=== PATIENT | female | born 2005 | race Two or more races ===

== ENCOUNTER 2025-02-25 21:48 | Emergency (ER) | payer OTHER, SELFPAY ==
[2025-02-25 21:50] VITALS: BP 121/78; PULSE 124; RESP 18; TEMP 36.9; O2SAT 99; BMI 28.8
--- NOTE | 2025-02-25 22:01 | PC.NURSE ---
Patient presents from home with generalized blotchy hives started on Wednesday while at work and has progressively gotten worse with assoc itching and joint pain. Has taken benadryl with minimal effect.
[2025-02-25 22:04] VITALS: BP 119/77; PULSE 117; RESP 16; O2SAT 100
[2025-02-25 22:25] LABS: MANUAL DIFF FLAG NO
[2025-02-25 22:26] LABS: Basophils Percent Auto 0.1 % (0-2); Eosinophils Absolute Auto 0.1 X10*3/uL (0.0-0.4); Hematocrit 42.3 % (37.0-47.0); Imm Gran Abs Auto 0.02 X10*3/uL (0.00-0.03); Imm Gran Pct Auto 0.2 % (0.0-0.4); Lymphocytes Absolute Auto 1.4 X10*3/uL (1.2-4.9); Lymphocytes Percent Auto 13.7 % (20-40); Mean Corpuscular HGB Conc 33.1 g/dl (31.0-35.0); Mean Corpuscular Hemoglobin 26.7 pg (27.0-33.0); Mean Corpuscular Volume 80.7 fL (80.0-98.0); Mean Platelet Volume 8.9 fL (9.4-12.3); Monocytes Absolute Auto 0.4 X10*3/uL (0.1-1.2); Monocytes Percent Auto 3.7 % (2-11); Neutrophils Absolute Auto 8.2 x10*3/uL (2.0-8.3); Neutrophils Percent Auto 81.3 % (45-73); Platelet Count 253 X10*3/uL (160-400); Red Blood Count 5.24 X10*6/uL (4.20-5.50); Red Cell Distribution Width 14.1 % (11.0-16.0)
[2025-02-25 22:40] LABS: Alanine Aminotransferase 7 U/L (0-31); Albumin Level 3.4 g/dL (3.5-5.0); Alkaline Phosphatase 81 U/L (39-117); Anion Gap 10 (12-20); Aspartate Amino Transferase 16 U/L (5-31); Bilirubin Total 0.4 mg/dL (0.0-1.0); Blood Urea Nitrogen 7 mg/dL (9-16); Calcium 8.3 mg/dL (8.4-10.2); Carbon Dioxide 23 mmol/L (22-29); Chloride 107 mmol/L (96-108); Creatinine Clr Calc Pharmacy 117.6; Estimated Glomerular Filt Rate > 60; Glucose Random 96 mg/dL (60-115); Potassium 3.7 mmol/L (3.3-5.1); Sodium 136 mmol/L (135-145); Total Protein 6.4 g/dL (6.5-8.0)
[2025-02-26 00:20] VITALS: BP 110/63; PULSE 113; RESP 15; O2SAT 98
--- NOTE | 2025-02-26 00:38 | ED.GENADULT ---
HPI - General Adult General Chief complaint: Allergic Reaction Stated complaint: Allergic reaction? Time Seen by Provider: 02/26/25 00:38 History of Present Illness ED Provider: Hunter CHOE narrative: The patient is a 19-year-old female who does not have a history of problems with allergies or hives. 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 The hives persisted throughout the day yesterday and today. She has been taking Benadryl which has helped somewhat with the itchiness but she has a lot of discomfort associated with the hives that the Benadryl does not help she says. No fever, sweats or chills. No sore throat. No shortness of breath. No intraoral lesions. She denies any new products. She denies any new foods.. The patient has been on the same control pill since the age of 12. The patient has a history of migraine headaches. Related Data Previous Rx's ?Medication ?Instructions ?Recorded famotidine 40 mg tablet 40 mg PO DAILY PRN allergy 02/26/25 symptoms #10 tabs loratadine 10 mg tablet 10 mg PO DAILY PRN allergic 02/26/25 symptoms #10 tabs prednisone 20 mg tablet 20 mg PO DAILY #12 tabs 02/26/25 Allergies Allergy/AdvReac Type Severity Reaction Status Date / Time No Known Allergies Allergy Verified 02/25/25 21:52 Review of Systems Review of Systems: Yes all other systems are reviewed and are negative PMFSH Social History Social History Advance Directives: No Advance Directives Information Provided: No Do you have a plan to hurt others: No Plan Physical Exam ED Vital Signs: Vital Signs - 24 hr 02/25/25 21:50 02/25/25 22:04 02/26/25 00:20 Temperature 98.4 F Pulse Rate 124 H 117 H 113 H Respiratory Rate 18 16 15 Blood Pressure 121/78 119/77 110/63 Pulse Oximetry 99 100 98 Oxygen Delivery Method Room Air Room Air Room Air 02/26/25 01:23 02/26/25 02:14 Temperature 99.8 F Pulse Rate 114 H 113 H Respiratory Rate 17 Blood Pressure 114/61 114/61 Pulse Oximetry 97 Oxygen Delivery Method Room Air BMI result Body Mass Index 28.8 Const Other: The patient is a 19-year-old female who was awake and alert. She has a extensive hives on her face, trunk, and extremities. She shows no signs of respiratory distress. Her mental status is clear. HENMT Other: The patient has hives on the forehead. No intraoral lesions. The posterior pharynx is unremarkable. Eyes General: appearance normal, both eyes and all related structures Eyelids: Yes eyelids normal Conjunctivae: conjunctivae normal Pupils: Equal, round and reactive pupils present EOM: EOMs intact bilaterally Neck Neck: Yes normal visual inspection, Yes full ROM and Yes no lymphadenopathy Resp Effort & Inspection: normal respiratory effort Auscultation: clear to auscultation bilaterally Cardio Rate: tachycardic Rhythm: regular rhythm Heart sounds: S1 normal heart sound present and S2 normal heart sound present GI Other: There are hives on the skin of the abdomen. The abdomen is soft and nontender. Back/Spine/Pelvis Other: Urticaria on the back. Skin Other: The patient has urticaria on the face, the torso, and the extremities. Neuro Other: The patient is awake and alert with a normal mental status. Cranial nerves are intact. She moves her extremities normally. Her gait is normal. Cranial nerves: Yes Equal, round and reactive pupils present Extrem Other: The patient has hives on her extremities but she has no peripheral edema. Medications Administered Discontinued Medications Generic Name Dose Route Start Last Admin Trade Name Freq PRN Reason Stop Dose Admin Epinephrine 0.4 mg 02/26/25 00:54 02/26/25 01:23 Epinephrine 1 Mg/Ml Vial IM 02/26/25 00:55 0.4 mg STAT STA Administration Famotidine 20 mg 02/26/25 00:53 02/26/25 01:22 Famotidine 20 Mg Tablet PO 02/26/25 00:54 20 mg ONCE ONE Administration Loratadine 10 mg 02/26/25 00:53 02/26/25 01:23 Loratadine 10 Mg Tablet PO 02/26/25 00:54 10 mg ONCE ONE Administration Prednisone 60 mg 02/26/25 00:53 02/26/25 01:23 Prednisone 20 Mg Tablet PO 02/26/25 00:54 60 mg ONCE ONE Administration Medical Decision Making Medical Decision Making MDM Narrative: The patient is a 19-year-old female who does not have any history of significant allergic reactions and who also does not feel that she has had any significant new exposures ( although she started using a new detergent 2 weeks ago). she is on a control pill but no other medications. She has significant urticaria but no signs of airway or pulmonary involvement. Blood pressure is good. She does not appear toxic. The patient was given IM epinephrine with improvement in the symptoms of the hives although there was no complete resolution of the hives. She was also given prednisone, loratadine, and famotidine. The patient has no sense of any intraoral swelling. She has no sense of any sore throat. She does not have any lymphadenopathy on exam, particularly no cervical adenopathy. My overall impression is that she is having some kind of unexplained seemed urticaria. She was given an IM injection of epinephrine with improvement in her symptoms. She will be discharged on a course of prednisone, loratadine, and famotidine. She should follow up with her PCP and likely follow up with an survey interviewer as well. Lab Data 02/25/25 22:19 02/25/25 22:19 Labs: Lab Results 02/25/25 Range/Units 22:19 WBC 10.0 (4.8-10.8) X10*3/uL RBC 5.24 (4.20-5.50) X10*6/uL Hgb 14.0 (12.0-16.0) g/dl Hct 42.3 (37.0-47.0) % MCV 80.7 (80.0-98.0) fL MCH 26.7 L (27.0-33.0) pg MCHC 33.1 (31.0-35.0) g/dl RDW 14.1 (11.0-16.0) % Plt Count 253 (160-400) X10*3/uL MPV 8.9 L (9.4-12.3) fL Immature Gran % (Auto) 0.2 (0.0-0.4) % Neut % (Auto) 81.3 H (45-73) % Lymph % (Auto) 13.7 L (20-40) % Roane % (Auto) 3.7 (2-11) % Eos % (Auto) 1.0 (0-4) % Baso % (Auto) 0.1 (0-2) % Lymph # (Auto) 1.4 (1.2-4.9) X10*3/uL Roane # (Auto) 0.4 (0.1-1.2) X10*3/uL Eos # (Auto) 0.1 (0.0-0.4) X10*3/uL Baso # (Auto) 0.0 (0.0-0.2) X10*3/uL Abs Immat Gran (auto) 0.02 (0.00-0.03) X10*3/uL Absolute Neuts (auto) 8.2 (2.0-8.3) x10*3/uL Absolute Nucleated RBC 0.000 (0.0-0.012) X10*3/uL Nucleated RBC % (auto) 0.0 (0.0-0.2) /100WBC Sodium 136 (135-145) mmol/L Potassium 3.7 (3.3-5.1) mmol/L Chloride 107 (96-108) mmol/L Carbon Dioxide 23 (22-29) mmol/L Anion Gap 10 L (12-20) BUN 7 L (9-16) mg/dL Creatinine 0.74 (0.5-1.4) mg/dL Estim Creat Clear Calc 117.6 Estimated GFR > 60 Random Glucose 96 (60-115) mg/dL Calcium 8.3 L (8.4-10.2) mg/dL Total Bilirubin 0.4 (0.0-1.0) mg/dL AST 16 (5-31) U/L ALT 7 (0-31) U/L Alkaline Phosphatase 81 (39-117) U/L C-Reactive Protein 3.95 H (< or = 0.50) mg/dL Total Protein 6.4 L (6.5-8.0) g/dL Albumin 3.4 L (3.5-5.0) g/dL Beta HCG, Quant < 2 mIU/mL Discharge Plan Discharge Clinical Impression: Urticaria Patient Disposition: Home, Self-Care Instructions: Urticaria (ED) Additional Instructions: please make sure you avoid any exposures or products that might be new in your life. Please take the prednisone once a day as prescribed for the next 5 days. I have also sent a prescription for loratadine and famotidine. These are antihistamine medications which you should take on an as-needed basis once a day for ongoing allergic reaction symptoms. If necessary you may use Benadryl in addition to these medications. Please contact your regular doctor's office in the morning for a follow up appointment. Additionally I would contact the allergy and immunology office ( contact information below) for an appointment to investigate this episode of hives further. If at any point you are significantly worse please return to the emergency department. Prescriptions: New prednisone 20 mg tablet 20 mg PO DAILY Qty: 12 0RF Rx Instructions: Take 3 tablets by mouth daily for 2 days then take 2 tablets by mouth daily for 3 days. loratadine 10 mg tablet 10 mg PO DAILY PRN (Reason: allergic symptoms) Qty: 10 0RF famotidine 40 mg tablet 40 mg PO DAILY PRN (Reason: allergy symptoms) Qty: 10 0RF Referrals: [facility] [Outside] ( urticaria) Enmanuel Winter MD [Primary Care Provider] - ( Significant urticaria) Print Language: [place]
[2025-02-26 01:22] LABS: C Reactive Protein 3.95 mg/dL (< or = 0.50)
[2025-02-26] MEDS: Famotidine 20 MG TABLET PO (01:22)
[2025-02-26 01:23] VITALS: BP 114/61; PULSE 114
[2025-02-26] MEDS: EPINEPHrine 1 MG/ML VIAL 0.4 MG IM (01:23)
[2025-02-26] MEDS: predniSONE 20 MG TABLET 60 MG PO (01:23)
[2025-02-26] MEDS: Loratadine 10 MG TABLET PO (01:23)
[2025-02-26 01:26] LABS: HCG Quantitative < 2 mIU/mL
[2025-02-26 02:14] VITALS: BP 114/61; PULSE 113; RESP 17; TEMP 37.7; O2SAT 97
[2025-02-26 02:34] VITALS: BP 114/61; PULSE 113; RESP 17; TEMP 37.7; O2SAT 97
== END 2025-02-26 02:34 | disposition home or self-care (01) ==
PROVIDERS: Emergency Provider Emergency Medicine; PCP Pediatrics
DX: L50.9 Urticaria, unspecified (principal)
CPT/HCPCS: 36415; 80053; 84702; 85025; 86140; 96372; 99284; J0171